=== PATIENT | male | born 1950 | race Caucasian/White ===

== ENCOUNTER 2023-06-04 22:06 | Inpatient (IN) | payer OTHER, MEDICARE ==
[~2023-06-04] VITALS: Ht 170.2 cm; Wt 95.0 kg
[2023-06-04 22:29] LABS: BASOPHILS ABSOLUTE AUTO 0.06 K/mm3 (0.00-0.23); BASOPHILS PERCENT AUTO 1 % (0-2); EOSINOPHILS ABSOLUTE AUTO 0.42 K/mm3 (0.00-0.68); EOSINOPHILS PERCENT AUTO 6 % (0-6); IMMATURE GRAN ABSOLUTE AUTO 0.01 K/mm3 (0.00-0.10); IMMATURE GRAN PERCENT AUTO 0 % (0-1); LYMPHOCYTES ABSOLUTE AUTO 2.23 K/mm3 (0.84-5.20); LYMPHOCYTES PERCENT AUTO 30 % (21-46); MONOCYTES ABSOLUTE AUTO 0.44 K/mm3 (0.16-1.47); MONOCYTES PERCENT AUTO 6 % (4-13); Mean Corpuscular HGB 31.9 pg (26.0-34.0); Mean Corpuscular HGB Conc 34.1 g/dL (31.5-36.5); Mean Corpuscular Volume 93 fL (80-100); Mean Platelet Volume 10.1 fL (9.1-12.4); NEUTROPHILS ABSOLUTE AUTO 4.22 K/mm3 (1.96-9.15); NEUTROPHILS PERCENT AUTO 57 % (41-73); Platelet Count 165 K/mm3 (150-400); RDW Coefficient Variation 12.4 % (11.7-14.2); RDW Standard Deviation 42.9 fL (35.1-46.3); Red Blood Cell Count 4.39 M/mm3 (4.30-5.90); White Blood Cell Count 7.38 K/mm3 (4.00-11.30)
[2023-06-04 23:06] LABS: Albumin, Blood 3.6 g/dL (3.4-5.0); Albumin/Globulin Ratio 1.1 (0.8-1.8); Bilirubin, Total 0.5 mg/dL (0.1-1.0); Bun/Creatinine Ratio 20.2 (12.0-20.0); Calcium, Blood 8.9 mg/dL (8.5-10.1); Creatinine, Blood 0.94 mg/dL (0.60-1.20); Globulin, Blood 3.2 g/dL (2.2-4.0); Potassium, Blood 3.9 mmol/L (3.5-5.5); Total Protein, Blood 6.8 g/dL (6.4-8.2)
[2023-06-05] VITALS (12 sets, daily range): BP systolic 125–182; BP diastolic 50–166
[2023-06-05] MEDS ORDERED: METFORMIN HCL500 M2 PO (00:36)
[2023-06-05] MEDS ORDERED: TAMSULOSIN HCL0.4 M1 PO (00:36)
[2023-06-05] MEDS ORDERED: METO50ER PO (00:36)
[2023-06-05] MEDS ORDERED: PRINIVIL5 M1 PO (00:39)
[2023-06-05] MEDS ORDERED: ATOR40TA PO (00:39)
[2023-06-05] MEDS ORDERED: ALLOPURINOL100 M1 PO (00:40)
[2023-06-05] MEDS ORDERED: CATAPRES0.1 MG PO (00:40)
[2023-06-05] MEDS ORDERED: Heparin Sodium,Porcine/0.5 NS 500 ML IV SCH (03:00)
[2023-06-05] MEDS ORDERED: Heparin Sodium 5000 Units/ML 1ML MDV IV ONE (03:00)
[2023-06-05] MEDS ORDERED: Lactated Ringer's 1,000 ML IV ONE (03:24)
[2023-06-05] MEDS ORDERED: Lactated Ringer's 1,000 ML IV SCH (04:55)
[2023-06-05] MEDS ORDERED: Ondansetron HCl 2 MG / ML 2ML Vial IV PRN (04:55)
[2023-06-05] MEDS ORDERED: Nitroglycerin 0.4 MG SUBL SL PRN (04:55)
[2023-06-05 05:04] LABS: BASOPHILS ABSOLUTE AUTO 0.06 K/mm3 (0.00-0.23); BASOPHILS PERCENT AUTO 1 % (0-2); EOSINOPHILS ABSOLUTE AUTO 0.43 K/mm3 (0.00-0.68); EOSINOPHILS PERCENT AUTO 6 % (0-6); Hematocrit 37.6 % (37.0-53.0); Hemoglobin 13.3 g/dL (13.5-17.5); IMMATURE GRAN ABSOLUTE AUTO 0.02 K/mm3 (0.00-0.10); IMMATURE GRAN PERCENT AUTO 0 % (0-1); LYMPHOCYTES ABSOLUTE AUTO 2.07 K/mm3 (0.84-5.20); LYMPHOCYTES PERCENT AUTO 30 % (21-46); MONOCYTES ABSOLUTE AUTO 0.45 K/mm3 (0.16-1.47); MONOCYTES PERCENT AUTO 7 % (4-13); Mean Corpuscular HGB Conc 35.4 g/dL (31.5-36.5); Mean Corpuscular Volume 93 fL (80-100); Mean Platelet Volume 11.3 fL (9.1-12.4); NEUTROPHILS ABSOLUTE AUTO 3.78 K/mm3 (1.96-9.15); NEUTROPHILS PERCENT AUTO 56 % (41-73); Platelet Count 192 K/mm3 (150-400); RDW Coefficient Variation 12.6 % (11.7-14.2); RDW Standard Deviation 43.4 fL (35.1-46.3); Red Blood Cell Count 4.03 M/mm3 (4.30-5.90); White Blood Cell Count 6.81 K/mm3 (4.00-11.30)
[2023-06-05] MEDS ORDERED: FLU VACC QS2023-24(6MOS UP)/PF 60 MCG/0.5 ML SYRINGE IM SCH (05:05)
[2023-06-05 06:40] LABS: Alanine Aminotransfer (ALT/SGP 13 U/L (12-78); Albumin, Blood 3.2 g/dL (3.4-5.0); Albumin/Globulin Ratio 1.1 (0.8-1.8); Alk Phos 77 U/L (50-136); Anion Gap 2 mmol/L (6-16); Aspartate Aminotrans (AST/SGOT 18 U/L (12-37); Bilirubin, Total 0.6 mg/dL (0.1-1.0); Blood Urea Nitrogen 18 mg/dL (8-24); Bun/Creatinine Ratio 21.4 (12.0-20.0); CHOL/HDL RATIO 3.1; CO2, Blood 27 mmol/L (21-32); Calcium, Blood 8.8 mg/dL (8.5-10.1); Chloride, Blood 114 mmol/L (98-108); Cholesterol 128 mg/dL (50-200); Creatinine, Blood 0.84 mg/dL (0.60-1.20); Glomerular Filtration Rate 91 (60-); Glucose, Blood 115 mg/dL (70-99); HDL Cholesterol 41 mg/dL (>39); LDL/HDL RATIO 1.6; Low Density Lipoprotein Chol 67 mg/dL (0-110); Magnesium, Blood 1.9 mg/dL (1.6-2.4); Potassium, Blood 4.2 mmol/L (3.5-5.5); Sodium, Blood 143 mmol/L (136-145); Total Protein, Blood 6.2 g/dL (6.4-8.2); Triglycerides 102 mg/dL (30-160); Very Low Density Lipoprot Chol 20 mg/dL (6-32)
[2023-06-05 07:24] LABS: Anti-Xa UFH, PHA Monitoring <0.10 IU/mL; International Normalized Ratio 0.99; Prothrombin Time Results 10.4 Sec (9.7-11.5)
--- NOTE | 2023-06-05 07:27 | NUR ---
SHIFT SUMMARY PT ARRIVED DURING MEDITECH DOWNTIME PT ARRIVED TO UNIT AT 0205, NO GTTS RUNNING ON ARRIVAL. PT HAD 1 PIV IN L AC PRESENT, NEW IV STARTED IN R FA. HEPARIN AND LR STARTED AT APPROXIMATELY 0330, SEE EMAR. PT ABLE TO TRANSFER FROM STRETCHER TO BED WITH STANDBY ASSIST. PT ON TELE WITH CONTINUOUS PULSE OX MONITORING. PT ON ROOM AIR, ABLE TO ANSWER QUESTIONS APPROPRIATELY. PLANS TO TREND TROPONINS AND CHECK BLOOD SUGAR Q6H. AT 0353 WILLIAM NOTIFIED OF 0230 TROPONIN RESULTS OF 814, INCREASED FROM PREVIOUS RESULT. PT HAS NO NEW C/O OF CHEST PAIN. PT HAS SCALEY, PATCHY RED AND WHITE CIRCULAR RASH-APPEARING AREAS ON LOWER BILATERAL ANKLES. PT STATED RASH HAS BEEN PRESENT FOR ABOUT A WEEK AND BELIEVE IT TO BE FROM A NEW SOAP PT USED. PT DOES NOT ENDORSE PAIN OR ONGOING ITCHING AT SITE, ONLY OCCASIONAL ITCHING.
[2023-06-05] MEDS ORDERED: Atorvastatin 40 MG Tab PO SCH (09:00)
[2023-06-05] MEDS ORDERED: Tamsulosin HCl 0.4 MG Cap PO SCH (09:00)
[2023-06-05] MEDS ORDERED: Metoprolol Succinate 50 MG TABCR PO SCH (09:00)
[2023-06-05] MEDS ORDERED: Allopurinol 100 MG Tab PO SCH (09:00)
[2023-06-05] MEDS ORDERED: Aspirin 81 MG Chew PO SCH (09:00)
[2023-06-05] MEDS ORDERED: Docusate Sodium 100 MG Cap PO SCH (09:00)
[2023-06-05] MEDS ORDERED: Lisinopril 5 MG Tab PO SCH (09:00)
[2023-06-05] MEDS ORDERED: Enoxaparin 40 MG/0.4 ML SYR SC SCH (09:00)
[2023-06-05] MEDS ORDERED: Dose Adjust by Pharmacy XX STA (10:51)
[2023-06-05] MEDS ORDERED: Midazolam HCl 1MG / ML 2ML Vial ONE (11:53)
[2023-06-05] MEDS ORDERED: NS 1,000 ML IV ONE ×2 (11:53→12:05)
[2023-06-05] MEDS ORDERED: FentaNYL Citrate 50 MCG/ML 2 ML Injection ONE (11:53)
[2023-06-05] MEDS ORDERED: Heparin Sodium 1000 Units/ML 10ML MDV ONE (12:04)
[2023-06-05] MEDS ORDERED: NS 250 ML IV ONE (12:05)
[2023-06-05] MEDS ORDERED: Nitroglycerin 2 MG/20 ML BTL ONE (12:05)
[2023-06-05] MEDS ORDERED: NiCARdipine HCL 1,000 MCG/5 ML SYR ONE (12:05)
--- NOTE | 2023-06-05 12:27 | NUR ---
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
--- NOTE | 2023-06-05 12:41 | NUR ---
PALLATIVE CARE- MET WITH RADU. DISCUSSED SYMPTOM MANAGMENT. HE REPORTED THAT HE HAD BEEN HAVING MILD CHEST PAIN THAT WOULD LAST A SHORT PERIOD OF TIME. THE EPISODE THAT BROUGHT HIM IN WAS MORE PAINFUL AND NOT RESOLVING. HE IS SCHEDULED FOR AN ANGIO THIS AFTERNOON. WILL CONTINUE TO BE AVALIABLE.
--- NOTE | 2023-06-05 17:16 | NUR ---
SHIFT SUMMARY PT A&OX4. SP02>90% ON RA. TELEMETRY SHOWS NSR, HR 60'S. VSS. OCCASIONAL HTN NOTED. PT DOWN TO OPERATOR HELPER THIS SHIFT FOR ANGIO. PT BACK FROM OPERATOR HELPER W/ R RADIAL SITE, NO INTERVENTIONS, PLANS TO [facility] TO [facility] FOR FURTHER INTERVENTION. R RADIAL NOW FULLY DEFLATED. WAITING THE 1 HR TO TAKE OFF BAND AND REPLACE WITH OPSITE. NO BRUISING, NO HEMATOMA NOTED. ARM BOARD IN PLACE. HEP GTT ON STANDBY UNTIL 1 HR AFTER TR BAND REMOVED PER MD MONTANO VERBAL ORDER. LR INFUSING PER EMAR. UP TO BATHROOM TO VOID. FRIENDS IN ROOM CURRENTLY. CALL LIGHT IN REACH.
--- NOTE | 2023-06-05 18:08 | NUR ---
UPDATE TR BAND OFF AT THIS TIME. SITE SOFT, NO BRUISING, NO BLEEDING, NO HEMATOMA. OPSITE PLACED. ARM BOARD IN PLACE.
[2023-06-06] VITALS (9 sets, daily range): BP systolic 140–184; BP diastolic 57–95
[2023-06-06 01:07] LABS: BASOPHILS ABSOLUTE AUTO 0.05 K/mm3 (0.00-0.23); BASOPHILS PERCENT AUTO 1 % (0-2); EOSINOPHILS PERCENT AUTO 7 % (0-6); Hematocrit 37.1 % (37.0-53.0); Hemoglobin 12.6 g/dL (13.5-17.5); IMMATURE GRAN ABSOLUTE AUTO 0.01 K/mm3 (0.00-0.10); IMMATURE GRAN PERCENT AUTO 0 % (0-1); LYMPHOCYTES ABSOLUTE AUTO 1.82 K/mm3 (0.84-5.20); LYMPHOCYTES PERCENT AUTO 31 % (21-46); MONOCYTES ABSOLUTE AUTO 0.41 K/mm3 (0.16-1.47); MONOCYTES PERCENT AUTO 7 % (4-13); Mean Corpuscular HGB 31.7 pg (26.0-34.0); Mean Corpuscular Volume 94 fL (80-100); Mean Platelet Volume 10.3 fL (9.1-12.4); NEUTROPHILS PERCENT AUTO 54 % (41-73); Platelet Count 145 K/mm3 (150-400); RDW Coefficient Variation 12.3 % (11.7-14.2); RDW Standard Deviation 42.9 fL (35.1-46.3); Red Blood Cell Count 3.97 M/mm3 (4.30-5.90); White Blood Cell Count 5.79 K/mm3 (4.00-11.30)
[2023-06-06 01:23] LABS: Bun/Creatinine Ratio 16.7 (12.0-20.0); Calcium, Blood 8.6 mg/dL (8.5-10.1); Creatinine, Blood 0.9 mg/dL (0.60-1.20); Potassium, Blood 4.1 mmol/L (3.5-5.5)
[2023-06-06] MEDS ORDERED: Dose Adjust by Pharmacy XX STA ×2 (01:36→10:33)
[2023-06-06] MEDS ORDERED: HydrALAZINE HCl 20 MG / ML 1ML Vial IV PRN (05:40)
--- NOTE | 2023-06-06 05:53 | NUR ---
SHIFT SUMMARY PT ALERT AND ORIENTED X 4, COOPERATIVE WITH CARE AND ABLE TO MAKE NEEDS KNOWN. HE CALLS APPROPRIATELY. FRANC. HE IS ON RA AND MAINTAINING 02 SATURATION ABOVE 92%, HE DENIES SOB. HR SR 60'S. PER DAY SHIFT REPORT AT BEGINNING OF SHIFT, PT'S BP WOULD GET ELEVATED AT TIMES BUT WOULD COME DOWN ON ITS OWN. AROUND 0300 PT'S BP BECAME ELEVATED AND DIDN'T COME DOWN ON ITS OWN. WAS NOTIFIED, ORDERS GIVEN, PT MEDICATED PER EMAR. PT HAS BEEN ASYMPTOMATIC ALL SHIFT, HE HAS DENIED CHEST PAIN/PRESSURE/DIZZINESS/PALPITATIONS. HEP GTT IS RUNNING PER EMAR. PT AMBULATED TO RESTROOM WITH SBA SEVERAL TIMES THIS SHIFT. PT GOT SEVERAL HOURS OF SLEEP THIS SHIFT. HE IS CURRENTLY RESTING IN BED WITH TV ON, CALL LIGHT WITHIN REACH.
[2023-06-06] MEDS ORDERED: Lisinopril 10 MG Tab PO SCH (08:00)
[2023-06-06] MEDS ORDERED: Furosemide 10 MG / ML 2ML Vial IV SCH (09:00)
--- NOTE | 2023-06-06 14:56 | NUR ---
COBRA TRANSFER PT A&O X4. VSS. BP ELEVATED, IMPROVED W/ MEDICATION PER EMAR. SPO2 > 92% ON RA. MONITOR SHOWING SR, HR 60s-70s. PT INDEPENDENT IN . HEPARIN GTT INFUSING PER ORDERS. PT DENYING CP OVER NIGHT & SO FAR THIS SHIFT. CALL FROM [facility] NURSE FOR REPORT. PT TO BE TRANSFERING TO 362 @ [facility] BY AMBULANCE W/ HEPARIN GTT INFUSING PER ORDERS. PT DEPARTING PCU BY OSCAR @ APPROX 1450.
== END 2023-06-06 14:55 | disposition short-term general hospital (02) | DRG 280 ==
LOC: ER 22:06 → PCU 06-05 01:14
PROVIDERS: Emergency Medicine; Family Medicine; ADMIT Student in an Organized Health Care Education/Training Program
PROC: B2111ZZ Fluoroscopy of Multiple Coronary Arteries using Low Osmolar Contrast (ICD-10-PCS; principal; 2023-06-05)
PROC: 4A023N7 Measurement of Cardiac Sampling and Pressure, Left Heart, Percutaneous Approach (ICD-10-PCS; 2023-06-05)
DX: I21.4 Non-ST elevation (NSTEMI) myocardial infarction (principal); I50.33 Acute on chronic diastolic (congestive) heart failure; I25.10 Atherosclerotic heart disease of native coronary artery without angina pectoris; E78.5 Hyperlipidemia, unspecified; M48.061 Spinal stenosis, lumbar region without neurogenic claudication; D69.6 Thrombocytopenia, unspecified; I77.810 Thoracic aortic ectasia; E11.51 Type 2 diabetes mellitus with diabetic peripheral angiopathy without gangrene; D64.9 Anemia, unspecified; I11.0 Hypertensive heart disease with heart failure; M10.9 Gout, unspecified; I25.2 Old myocardial infarction; Z95.5 Presence of coronary angioplasty implant and graft; Z95.1 Presence of aortocoronary bypass graft; Z98.890 Other specified postprocedural states; Z79.899 Other long term (current) drug therapy; Z79.811 Long term (current) use of aromatase inhibitors; Z79.84 Long term (current) use of oral hypoglycemic drugs; Z87.891 Personal history of nicotine dependence; Z82.49 Family history of ischemic heart disease and other diseases of the circulatory system
CPT/HCPCS: 36415; 71046; 76937; 80048; 80053; 80061; 82947; 83036; 83735; 83880; 84443; 84484; 85025; 85520; 85610; 85730; 93005; 93010; 93306; 93458; 94762; 99152; 99285-25; A9270; C1769; C1894; J0360; J1644; J1940; J2250; J3010; J7030; J7050; J7120; Q9967

== ENCOUNTER 2025-03-20 01:01 | Observation (INO) | payer MEDICARE ==
[~2025-03-20] VITALS: Ht 170.2 cm; Wt 88.3 kg
[~2025-03-20 01:01] MED LIST: ALLOPURINOL100 M1 PO; ATOR40TA PO; CATAPRES0.1 MG PO; METFORMIN HCL500 M2 PO; METO50ER PO; PRINIVIL5 M1 PO; TAMSULOSIN HCL0.4 M1 PO
[2025-03-20 01:25] LABS: BASOPHILS ABSOLUTE AUTO 0.05 K/mm3 (0.00-0.23); BASOPHILS PERCENT AUTO 1 % (0-2); EOSINOPHILS ABSOLUTE AUTO 0.33 K/mm3 (0.00-0.68); EOSINOPHILS PERCENT AUTO 4 % (0-6); Hematocrit 39.5 % (37.0-53.0); Hemoglobin 14.0 g/dL (13.5-17.5); IMMATURE GRAN ABSOLUTE AUTO 0.02 K/mm3 (0.00-0.10); IMMATURE GRAN PERCENT AUTO 0 % (0-1); LYMPHOCYTES ABSOLUTE AUTO 2.63 K/mm3 (0.84-5.20); LYMPHOCYTES PERCENT AUTO 31 % (21-46); MONOCYTES ABSOLUTE AUTO 0.63 K/mm3 (0.16-1.47); MONOCYTES PERCENT AUTO 8 % (4-13); Mean Corpuscular HGB Conc 35.4 g/dL (31.5-36.5); Mean Corpuscular Volume 89 fL (80-100); NEUTROPHILS ABSOLUTE AUTO 4.76 K/mm3 (1.96-9.15); NEUTROPHILS PERCENT AUTO 57 % (41-73); NRBC ABSOLUTE 0.00 K/mm3 (0.00-0.02); NRBC Auto 0.0 /100 WBC (0.0-0.2); Platelet Count 220 K/mm3 (150-400); RDW Coefficient Variation 13.2 % (11.7-14.2); RDW Standard Deviation 42.5 fL (35.1-46.3)
[2025-03-20 01:43] LABS: Alanine Aminotransfer (ALT/SGP 18.0 U/L (12-78); Albumin, Blood 3.1 g/dL (3.4-5.0); Albumin/Globulin Ratio 0.8 (0.8-1.8); Anion Gap 9.0 mmol/L (3-11); Aspartate Aminotrans (AST/SGOT 21.0 U/L (12-37); Bilirubin, Total 0.7 mg/dL (0.1-1.0); Blood Urea Nitrogen 9.0 mg/dL (8-24); CO2, Blood 33.0 mmol/L (21-32); Calcium, Blood 8.4 mg/dL (8.5-10.1); Chloride, Blood 99.0 mmol/L (98-108); Creatinine, Blood 1.0 mg/dL (0.60-1.20); Globulin, Blood 3.8 g/dL (2.2-4.0); Glucose, Blood 155.0 mg/dL (70-99); Potassium, Blood 2.5 mmol/L (3.5-5.5); Sodium, Blood 138.0 mmol/L (136-145); Total Protein, Blood 6.9 g/dL (6.4-8.2)
[2025-03-20] MEDS ORDERED: Potassium Chl 20MEQ/Water100ML 100 ML IV SCH (05:20)
[2025-03-20] MEDS ORDERED: FentaNYL Citrate 50 MCG/ML 2 ML Injection IV PRN (05:40)
[2025-03-20] MEDS ORDERED: FLU VACC TS2025(65UP)/MF59C/PF 45 MCG/0.5 ML SYRINGE IM SCH (05:40)
[2025-03-20] MEDS ORDERED: Ondansetron HCl 2 MG / ML 2ML Vial IV PRN (05:40)
[2025-03-20] MEDS ORDERED: NS 1,000 ML IV ONE (05:40)
[2025-03-20 05:59] LABS: Magnesium, Blood 1.9 mg/dL (1.6-2.4); Phosphorus, Blood 2.8 mg/dL (2.5-4.9)
[2025-03-20 06:02] VITALS: BP 181/99
[2025-03-20] MEDS ORDERED: Mag Hydrox/Al Hydrox/Simeth 72 ML,Lidocaine 2% Viscous Soln 36 ML,Atropine/Scopalam/Hyo... PO PRN (06:15)
--- NOTE | 2025-03-20 06:42 | NUR ---
PATIENT IS A NEW ADMIT FROM THE ED. DENIES CHEST PAIN, SOB, AND N/V. ON ROOM AIR. SBA FROM GURNEY TO BED. NS STARTED @ 75 mL/HR AND IV K+. TELEMETRY PLACED AND TECH REPORTS NSR 87. DR OSMAN IN THE ROOM FOR ASSESSMENT. NO NEW ORDERS PLACED. ORIENTED TO ROOM AND CALL LIGHT. REPORTS WANTS TO WATCH TV AFTER ASSESSMENT. WCTM.
[2025-03-20 07:20] VITALS: BP 201/98
[2025-03-20] MEDS ORDERED: Insulin Human Lispro 100 Units/ML 3ML Syringe SC SCH (07:30)
[2025-03-20] MEDS ORDERED: Mag Sulfate 1 GM/D5% 100ML 100 ML IV ONE (08:00)
[2025-03-20 08:47] VITALS: BP 183/90
--- NOTE | 2025-03-20 08:50 | NUR ---
PALLIATIVE CARE CONSULT: CONSULT RECEIVED FOR ADVANCED CARE PLANNING AND SYMPTOM MANAGEMENT. MEDICAL RECORD REVIEWED. NO POLST/AD ON FILE OR WITH [facility].
[2025-03-20] MEDS ORDERED: Enoxaparin 40 MG/0.4 ML SYR SC SCH (09:00)
[2025-03-20 10:07] VITALS: BP 167/83
[2025-03-20] MEDS ORDERED: ASPI81CH PO (11:14)
[2025-03-20 11:25] VITALS: BP 149/77
[2025-03-20] MEDS ORDERED: Isosorbide Mono30 MG PO (13:48)
--- NOTE | 2025-03-20 15:00 | NUR ---
SHIFT/DISCHARGE SUMMARY: PATIENT A/OX4, PLEASANT AND COOPERATIVE c CARE. PATIENT DENIES CP/PRESSURE, SOB, N/V AND DIZZINESS. PATIENT ON TELE, SR HR IN 80'S BPM, HYPERTENSIVE AND RECEIVED BP MEDS PER ORDER c GOOD EFFECT. PATIENT AM POTASSIUM LAB RESULT WAS 2.5, RECEIVED IV POTASSIUM AND MAG SULFATE PER ORDER. ECHO WAS DONE TODAY. PATIENT RECEIVED ALL SCHEDULED MEDS PER EMAR. PATIENT EXPRESSESS WOULD LIKE TO HO [place] TODAY, DR'S AWARE DURING AM ROUNDING. PATIENT HAS HAD NO COMPLAINTS OR DENIES NEW CONCERN THIS SHIFT. PIV DC'D. PATIENT DISCHARGE HOME. DISCHARGE INSTRUCTIONS PACKET GIVEN TO PATIENT. PATIENT EDUCATED ON ADMITTING DX'S OF CP, S/S, TX, NEW RX AND TO F/U c PCP. PATIENT VERBALIZED UNDERSTANDING c NO FURTHER QUESTIONS. RX WAS FAXED TO PATIENT PREFERRED PHARMACY-[facility]. ALL PERSONAL BELONGINGS WERE SENT c PATIENT. PATIENT LEFT THE ROM AT 1420, TRANSPORTED VIA W/C BY BRITTANY SEPULVEDA TO PATIENT ENTRANCE.
[2025-03-21] MEDS ORDERED: Isosorbide Mononitrate 60 MG TABCR PO SCH (09:00)
== END 2025-03-20 14:15 | disposition home or self-care (01) ==
LOC: ER 01:01 → MEDS 01:02 → ENPENDDIS 13:13 → MEDS 14:15
PROVIDERS: Emergency Medicine; ADMIT Internal Medicine
DX: I25.119 Atherosclerotic heart disease of native coronary artery with unspecified angina pectoris (principal); I10 Essential (primary) hypertension; E78.5 Hyperlipidemia, unspecified; E11.51 Type 2 diabetes mellitus with diabetic peripheral angiopathy without gangrene; Z79.84 Long term (current) use of oral hypoglycemic drugs; E87.6 Hypokalemia; N40.0 Benign prostatic hyperplasia without lower urinary tract symptoms; Z79.899 Other long term (current) drug therapy
CPT/HCPCS: 71046; 80053; 82947; 83735; 83880; 84100; 84484; 85025; 93005; 93010; 93306; A9270; J1650; J3475; J3480; J7030